=== PATIENT | female | born 1995 | race Caucasian/White ===

== ENCOUNTER 2017-06-11 15:29 | Emergency (ER) | payer OTHER ==
--- NOTE | 2017-06-11 16:11 | ED Physician Documentation ---
Lower Extremity Injury - HISTORIAN Historian: patient - HPI Stated Complaint: 3rd and 4th toes Chief Complaint: Lower Extremity Injury Additional Information: patient was walking barefoot and stepped off step and hyperflexed toe. She has some immediate pain. Has been having pain with weight bearing since that time. Patient denies any other injuries from fall. No head injury, no LOC Onset: hours (1 hour) Where: home Context: fall Associated Symptoms:: swelling, unable to bear weight. denies: tingling, numbness distally, popping sensation Modifying Factors:: pain on movement - ROS CONST: no problems. denies: fever, chills CVS/RESP: none NEURO: denies: headache, head injury - PAST HX Past History: none Immunizations: tetanus Allergies/Adverse Reactions: Allergies Allergy/AdvReac Type Severity Reaction Status Date / Time No Known Allergies Allergy Verified 06/11/17 15:43 Home Medications: Ambulatory Orders Medication Instructions Recorded Naproxen [Naprosyn] 500 mg PO BID #14 tablet 03/21/15 - SOCIAL HX Smoking History: non-smoker Alcohol Use: none Drug Use: none - FAMILY HX Family History: no significant history - VITAL SIGNS Vital Signs: Vital Signs Temp Pulse Resp BP Pulse Ox 97.7 F 82 18 107/54 95 06/11/17 17:22 06/11/17 17:22 06/11/17 17:22 06/11/17 17:22 06/11/17 17:22 - REVIEWED ASSESSMENTS Nursing Assessment Reviewed: Yes Vitals Reviewed: Yes ED Results Lab/Radiology - Lab Results Lab Results: Lab Results 06/11/17 16:27 Urine HCG, Qual Negative (NEGATIVE) - Radiology Radiology Impressions: Examination: Plain film foot History: Injury Findings: 3 views of the right foot demonstrates normal cortical margins. No fracture or dislocation. Specifically the 2nd and 3rd digits without cortical abnormality. No soft tissue swelling. No joint effusion. Impression: No acute osseous process. - Orders Orders: ED Orders Category Date Time Status FOOT 3 VIEWS OR MORE [RAD] Stat Exams 06/11/17 Completed URINE HCG Routine Lab 06/11/17 16:27 Completed Lower Extremities Injury Phy - Physical Exam General Appearance: no acute distress, alert Hips: bilateral hip: non-tender, normal inspection, normal range of motion, no evidence of injury Legs: bilateral: non-tender, normal inspection, normal range of motion, no evidence of injury Knees: bilateral: non-tender, normal inspection, normal range of motion, no evidence of injury Ankle: bilateral: non-tender, normal inspection, normal range of motion, no evidence of injury Foot: right foot: limited range of motion, nail injury (2nd toe), pain (no pain over metatarsels, some over the 2 and 3rd digets), soft tissue tenderness ( abrasion to the 2 and 3rd diget), swelling (2nd and 3rd toe), left foot: non- tender, normal inspection, normal range of motion, no evidence of injury Gait: limited by pain Neuro/Vascular/Tendon: no vascular compromise, motor nml, sensation nml Head/ENT: nml inspection Neck/Back: nml inspection Resp/CVS: chest non-tender, breath sounds nml, heart sounds nml, no resp. distress, lungs clear, reg. rate & rhythm Discharge Clincal Impression: Contusion of right foot Qualifiers: Encounter type: initial encounter Qualified Code(s): S90.31XA - Contusion of right foot, initial encounter Referrals: Viky Beach MD [Primary Care Provider] - 2 Days Additional Instructions: Dress foot with triple antibiotic ointment, watch for any secondary infection, wear a stiff sole shoe. Condition: Stable Disposition: 01 HOME, SELF-CARE Decision to Admit: NO Date of Decison to Admit: 06/11/17 Decision Time: 17:07
--- NOTE | 2017-06-11 16:53 | Diagnostic Imaging Report ---
[facility] [address] [facility].[address] 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 No fracture or dislocation. Specifically the 2nd and 3rd digits without cortical abnormality. No soft tissue swelling. No joint effusion. Impression: No acute osseous process. 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
[2017-06-11 17:26] VITALS: BP 107/54
== END 2017-06-11 17:22 | disposition home or self-care (01) ==
LOC: ED 15:29
DX: S90.31XA Contusion of right foot, initial encounter (principal); X58.XXXA Exposure to other specified factors, initial encounter
CPT/HCPCS: 73630; 81025; 99282; 99283; L3260

== ENCOUNTER 2018-01-16 08:35 | Emergency (ER) | payer SELFPAY ==
--- NOTE | 2018-01-16 08:54 | ED Physician Documentation ---
General Adult - HISTORIAN Historian: patient - HPI Stated Complaint: sore throat and allergy drainage Chief Complaint: Sore Throat Onset: days ago (7) Timing: still present Severity: mild Further Comments: yes (She is 21 weeks . She reports that she started feeling allergy drainge and she has progressed to sore throat, sinus drainge, she has some blood tinged mucus with coughing. She has no fever. No rash she is eating and drinking normally. She did have an ER visit at [facility] 72 hours ago and she was told she had a viral illness . No new complaints since this visit) Last known Well Code/Unknown Code: Unknown - ROS CONST: no problems EYES/ENT: sore throat, nasal drainage, nasal congestion CVS/RESP: cough. denies: shortness of breath GI/: denies: vomiting, nausea MS/SKIN/LYMPH: none. denies: rash NEURO/PSYCH: denies: headache - PAST HX Past History: none Other History: none Surgeries/Procedures: none Immunizations: UTD Allergies/Adverse Reactions: Allergies Allergy/AdvReac Type Severity Reaction Status Date / Time No Known Allergies Allergy Verified 06/11/17 15:43 Home Medications: Ambulatory Orders Medication Instructions Recorded Naproxen [Naprosyn] 500 mg PO BID #14 tablet 03/21/15 - SOCIAL HX Smoking History: non-smoker Alcohol Use: none Drug Use: none - FAMILY HX Family History: No - VITAL SIGNS Vital Signs: Vital Signs Temp Pulse Resp BP Pulse Ox 107/54 06/11/17 17:22 - REVIEWED ASSESSMENTS Nursing Assessment Reviewed: Yes Vitals Reviewed: Yes General Adult Physical Exam - PHYSICAL EXAM GENERAL APPEARANCE: no distress EENT: eye inspection normal, pharynx normal, no signs of dehydration, abnormal TM (fluid behind both TM's ). No: purulent nasal drainage, TM erythema NECK: normal inspection RESPIRATORY: no resp distress, chest non-tender, breath sounds normal CVS: reg rate & rhythm, heart sounds normal, equal pulses ABDOMEN: soft, normal bowel sounds, no distension SKIN: warm/dry, normal color EXTREMITIES: non-tender, normal range of motion, no evidence of injury, no edema NEURO: oriented X3, CN's nml as tested Discharge Clincal Impression: Viral illness Referrals: Viky Beach MD [Primary Care Provider] - 2 Days Additional Instructions: 1. Continue OTC meds as ok via OBGYN 2. Call OBGYN about continued symptoms if needed 3. Increase fluids 4. Saline sinus rinse 5. Humidifier 6. Return to ER for any concerns Condition: Stable Disposition: 01 HOME, SELF-CARE Decision to Admit: NO Date of Decison to Admit: 01/16/18 Decision Time: 09:09
[2018-01-16 09:01] VITALS: BP 119/73
== END 2018-01-16 09:25 | disposition home or self-care (01) ==
LOC: ED 08:35
DX: B34.9 Viral infection, unspecified (principal)
CPT/HCPCS: 99282

== ENCOUNTER 2018-03-01 22:43 | Emergency (ER) | payer OTHER ==
[2018-03-01] MEDS ORDERED: NITROFURANTOIN 100 MG CAPSULE PO ONE (23:14)
--- NOTE | 2018-03-01 23:19 | ED Physician Documentation ---
Female Urogenital Problems - HISTORIAN Historian: patient - HPI Stated Complaint: Squeezing bilateral low back pain Chief Complaint: Female Urogenital Problems Additional Information: Patient, 18-19 weeks , presents to ED with a 12-24 hour history of urinary frequency and low back pain. Patient states her symptoms began last night with urinary frequency and progressed tonight to low back pain. Patient denies any vaginal spotting or abdominal pain. 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 Onset: hours (24) Severity: mild Location of Pain: low back pain - Vaginal Bleeding Compared to Menstrual Periods: denies: spotting Care: Yes Sexual History: active - Associated Symptoms Urinary Symptoms: frequent urination Discharge: denies: vaginal discharge, vaginal fluid leakage, odorous discharge, yellowish discharge - ROS CONST: denies: fever GI/: denies: nausea, vomiting CVS/RESP: denies: chest pain, shortness of breath EYES/ENT: denies: sore throat NEURO/PSYCH: denies: headache MS/SKIN/LYMPH: denies: rash - PAST HX Past History: denies: spontaneous Other History: none Surgeries/Procedures: none Allergies/Adverse Reactions: Allergies Allergy/AdvReac Type Severity Reaction Status Date / Time latex Allergy Verified 03/01/18 22:57 Home Medications: Ambulatory Orders Medication Instructions Recorded Vit/Iron Fum/Folic AC 1 tab PO D 01/16/18 [ Tablet] Nitrofurantoin Monohyd/M-Cryst 100 mg PO BID 5 Days capsule 03/01/18 [Macrobid 100 mg Capsule] - SOCIAL HX Smoking History: non-smoker Alcohol Use: none Drug Use: none - FAMILY HX Family History: none - VITAL SIGNS Vital Signs: Vital Signs Temp Pulse Resp BP Pulse Ox 99.1 F 61 14 105/51 99 03/01/18 22:43 03/01/18 22:43 03/01/18 22:43 03/01/18 22:43 03/01/18 22:43 - REVIEWED ASSESSMENTS Nursing Assessment Reviewed: Yes Vitals Reviewed: Yes ED Results Lab/Radiology - Lab Results Lab Results: heart tones 144 bpm UA showing trace leukocytes, negative blood. - Orders Orders: ED Orders Category Date Time Status Nitrofurantoin Monohyd/M-Cryst [Macrobid] Med 03/01/18 23:14 Once 100 mg PO NOW ONE Female Urogenital Problems - EXAM General Appearance: no acute distress, alert EENT: NEVA Neck: No: lymphadenopathy Respiratory: no resp. 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 Condition: Stable Disposition: 01 HOME, SELF-CARE Decision to Admit: NO Date of Decison to Admit: 03/01/18 Decision Time: 23:35
[2018-03-01 23:54] VITALS: BP 119/73
[2018-03-02 06:29] LABS: APPEARANCE,URINE CLEAR (CLEAR); COLOR,URINE YELLOW (YELLOW); OCCULT BLOOD,URINE NEGATIVE (NEGATIVE)
[2018-03-02 06:30] LABS: UROBILINOGEN URINE 0.2 Eu (0.2-1.0)
== END 2018-03-01 23:35 | disposition home or self-care (01) ==
LOC: ED 22:43
DX: O23.12 Infections of bladder in pregnancy, second trimester (principal)
CPT/HCPCS: 81002; 99283

== ENCOUNTER 2018-04-21 17:22 | Emergency (ER) | payer OTHER ==
[2018-04-21] MEDS ORDERED: 0.9 % SODIUM CHLORIDE 1,000 ML IV ONE (18:04)
[2018-04-21] MEDS ORDERED: KETOROLAC TROMETHAMINE 30 MG/1ML VIAL IVP ONE (18:25)
[2018-04-21] MEDS ORDERED: MEPERIDINE (NF) 50 MG/ML VIAL IVP ONE (18:26)
[2018-04-21 19:00] VITALS: BP 115/76
--- NOTE | 2018-04-21 19:36 | ED Physician Documentation ---
General Adult - HISTORIAN Historian: patient - HPI Stated Complaint: back & abd pain Chief Complaint: General Adult Onset: hours Further Comments: yes (22 year old female patient G1, P0; 26 weeks , Due Date: July 31 - present with complaints of low back pain. Patient state her pain started suddenly at 1500; stopped at 1600 and began again at 1630. Patient c/o low back pain, worse in right flank. States pain wraps around to front and feel like menstral cramps. Reports active fetus currently. Patient reports she was told she had "kidney stone" at 16 weeks from a urine test.) - ROS CONST: no problems EYES/ENT: none CVS/RESP: none GI/: abdominal pain. denies: vomiting, nausea MS/SKIN/LYMPH: none NEURO/PSYCH: denies: headache - PAST HX Past History: kidney stones (at 16 weeks) Allergies/Adverse Reactions: Allergies Allergy/AdvReac Type Severity Reaction Status Date / Time latex Allergy Verified 04/21/18 19:04 Home Medications: Ambulatory Orders Medication Instructions Recorded Vit/Iron Fum/Folic AC 1 tab PO D 01/16/18 [ Tablet] - SOCIAL HX Smoking History: non-smoker - FAMILY HX Family History: No - VITAL SIGNS Vital Signs: Vital Signs Temp Pulse Resp BP Pulse Ox 97.0 F L 69 16 115/76 99 04/21/18 17:59 04/21/18 17:59 04/21/18 17:59 04/21/18 17:59 04/21/18 17:59 - REVIEWED ASSESSMENTS Nursing Assessment Reviewed: Yes Vitals Reviewed: Yes Progress - Progress Progress: 1L NS given in ER; medicated for pain with toradol and demerol 1909 Call to [facility]. [address] Loretta Lazaro - to labor and delivery. ED Results Lab/Radiology - Orders Orders: ED Orders Category Date Time Status Place IV Lock 1T Care 04/21/18 18:04 Active CBC/PLATELET/DIFF Stat Lab 04/21/18 18:30 Received CMP Stat Lab 04/21/18 18:30 Received UA W/MICRO IF INDICATED Stat Lab 04/21/18 17:34 Ordered 0.9 % Sodium Chloride [Normal Saline] 1,000 ml Med 04/21/18 18:04 Discontinued IV NOW Ketorolac Tromethamine [Toradol] Med 04/21/18 18:25 Discontinued 15 mg IVP NOW ONE Meperidine HCl/Pf [Demerol] Med 04/21/18 18:26 Discontinued 25 mg IVP NOW ONE General Adult Physical Exam - PHYSICAL EXAM GENERAL APPEARANCE: moderate distress EENT: eye inspection normal, no signs of dehydration, NEVA RESPIRATORY: no resp distress, chest non-tender, breath sounds normal CVS: reg rate & rhythm, heart sounds normal, equal pulses, no murmur, no gallop, PMI nml, no JVD, no friction rub, 24 ABDOMEN: soft, no organomegaly, normal bowel sounds, no abdominal bruit, no distension, other (protuberant female) BACK: normal inspection, CVA tenderness (R) SKIN: normal color, warm/dry, NR, INT, PAL, DR EXTREMITIES: non-tender, normal range of motion, no evidence of injury, no edema, J, 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
[2018-04-22 08:20] LABS: BASOPHILS % 0.4 (0.0-1.5); EOSINOPHILS % 2.7 % (0.0-6.8); MEAN CORPUSCULAR HEMOGLOBIN 29.1 pg (28.0-34.0); MONOCYTES % 6.2 % (0.0-11.0); NEUTROPHILS # 6.3 # k/uL (1.4-7.7)
[2018-04-22 08:21] LABS: eGFR (Non-African) > 60
[2018-04-22 15:51] LABS: APPEARANCE,URINE CLEAR (CLEAR); COLOR,URINE YELLOW (YELLOW); OCCULT BLOOD,URINE 2+ (NEGATIVE)
== END 2018-04-21 20:00 | disposition short-term general hospital (02) ==
LOC: ED 17:22
DX: O99.89 Other specified diseases and conditions complicating pregnancy, childbirth and the puerperium (principal); R10.31 Right lower quadrant pain; Z3A.26 26 weeks gestation of pregnancy
CPT/HCPCS: 36415; 80053; 81002; 85025; 96374; 96375; 99285; J1885; J2175; J7030; S1016